=== PATIENT | female | born 1975 | race African-American/Black ===

== ENCOUNTER → 2016-11-04 | Outpatient (CLI) | payer SELFPAY ==
--- NOTE | 2016-11-04 15:42 | RADIOLOGY REPORT (SQ) ---
EXAM DESCRIPTION: U/S EXTREMITY NONVASCULAR LTD COMPLETED DATE/TIME: 11/04/2016 3:08 pm REASON FOR STUDY: ENLARGED LYMPH NODES IN ARMPIT R59.0 LOCALIZED ENLARGED LYMPH NODES COMPARISON: None. TECHNIQUE: Dynamic and static grayscale images acquired of the localized site of clinical concern an d recorded on PACS. Additional selected color Doppler and spectral images recorded. SITE OF CONCERN: Right axilla LIMITATIONS: None. FINDINGS: SKIN AND SUBCUTANEOUS TISSUES: A small lymph node is identified measuring 1.0 x 0.8 x 0.5 cm in diameters. There is an associated asymmetric hypoechoic area measuring 0.6 x 0.5 x 0.4 cm in d iameter which I cannot exclude as an associated mass. DEEP SOFT TISSUES/MUSCLES: No masses. No fluid collections. No edema. VASCULAR: No increased or decreased vascularity. No occlusions. OTHER: No other significant finding. IMPRESSION: Small lymph node with an associated asymmetric hypoechoic area as noted above which I ca nnot exclude as a mass involving the lymph node. No other discrete solid or cystic masses are identi fied. Followup is recommended. This node may be amenable to ultrasound-guided biopsy. TECHNICAL DOCUMENTATION: JOB ID: [id number] [employer]- All Rights Reserved
== END ==
LOC: RAD 13:50
PROVIDERS: ATTEND Internal Medicine Medical Oncology
DX: R59.0 Localized enlarged lymph nodes (principal); Z15.01 Genetic susceptibility to malignant neoplasm of breast; Z15.02 Genetic susceptibility to malignant neoplasm of ovary; Z85.3 Personal history of malignant neoplasm of breast
CPT/HCPCS: 76882

== ENCOUNTER → 2016-12-22 | Day surgery (SDC) | payer SELFPAY ==
--- NOTE | 2016-12-24 17:25 | WOMENS IMAGING REPORT ---
EXAM DESCRIPTION: U/S BREAST BX COMPLETED DATE/TIME: 12/22/2016 2:37 pm REASON FOR STUDY: BREAST CANCER (C50.911) C50.911 MALIGNANT NEOPLASM OF UNSP SITE OF RIGHT FEMALE B ALFA R59.0 LOCALIZED ENLARGED LYMPH NODES Z15.01 GENETIC SUSCEPTIBILITY TO MALIGNANT NEOPLASM OF AFIA COMPARISON: Ultrasound right axilla 11/12/2016 TECHNIQUE: The procedure was discussed with the patient and the patient agreed to proceed. The patient was scanned and the lymph node of concern in the right axilla. This correlates with the area of concern on prior imaging studies. This area was targeted for ultrasound-guided core biopsy. After sterile skin prep and 3.5 mL local lidocaine 1% for skin and deep tissue anesthesia, a 14 gauge coaxial core biopsy needle was used to obtain several cores of tissue from the lesion. Under ultras ound guidance, a ribbon clip was placed in the areas sampled. There were no immediate post-procedure complications. MAMMOGRAM: Not performed Pathology yields a diagnosis of benign lymphoid tissue, no atypia or malignancy identified. Pathology is concordant. LIMITATIONS: None. FINDINGS: Ultrasound guided right axillary lymph node biopsy as described above. POST PROCEDURE MAMMOGRAMS FOR MARKER PLACEMENT: No IMPRESSION: ULTRASOUND-GUIDED CORE BIOPSY OF THE RIGHT AXILLARY LYMPH NODE YIELDS A BENIGN DIAGNOSIS COMMENT: COMMUNICATION: Attempts at calling the patient directly with this information or unsuccessf ul, patient's cell phone was not active Patient medication list reviewed: Yes- Quality ID# [id number]:Eligible professional attests to documenting i n the medical record they obtained, updated, or reviewed the patient's current medications. TECHNICAL DOCUMENTATION: JOB ID: [id number] [employer]- All Rights Reserved
== END ==
LOC: WI 12:26
PROVIDERS: ATTEND Internal Medicine Medical Oncology
PROC: 0HBT3ZX Excision of Right Breast, Percutaneous Approach, Diagnostic (ICD-10-PCS; principal; 2016-12-22)
DX: C50.911 Malignant neoplasm of unspecified site of right female breast (principal); R59.0 Localized enlarged lymph nodes; Z15.01 Genetic susceptibility to malignant neoplasm of breast; Z15.02 Genetic susceptibility to malignant neoplasm of ovary
CPT/HCPCS: 19083; 88305; 88342

== ENCOUNTER 2017-10-18 11:38 | Emergency (ER) | payer SELFPAY ==
[2017-10-18] MEDS ORDERED: ACETAMINOPHEN 325 MG TABLET PO ONE (12:14)
--- NOTE | 2017-10-18 12:47 | RADIOLOGY REPORT (SQ) ---
EXAM DESCRIPTION: SHOULDER RIGHT 2 OR MORE VIEWS COMPLETED DATE/TIME: 10/18/2017 12:33 pm REASON FOR STUDY: pain decreased rom COMPARISON: None. NUMBER OF VIEWS: Three views. TECHNIQUE: Internal rotation, external rotation, and Y view images acquired of the right shoulder. LIMITATIONS: None. FINDINGS: MINERALIZATION: Normal. BONES: No acute fracture or dislocation. No worrisome bone lesions. JOINTS: No glenohumeral joint malalignment. No AC joint widening. VISUALIZED LUNGS AND RIBS: No pneumothorax. No rib fracture. SOFT TISSUES: No radiopaque foreign body. OTHER: No other significant finding. IMPRESSION: No acute findings TECHNICAL DOCUMENTATION: JOB ID: [id number] [employer]- All Rights Reserved Reading location - IP/workstation name: [email or web address]
--- NOTE | 2017-10-18 13:14 | ER Document Report ---
ED Extremity Problem, Upper - General Chief Complaint: Shoulder Pain Stated Complaint: SHOULDER PAIN Time Seen by Provider: 10/18/17 12:05 Mode of Arrival: Ambulatory Information source: Patient Notes: 42-year-old female presented ED for complaint of right shoulder pain with no definite injury. She states that every once in a while when she tries to lift some reduce some she will get swelling to the shoulder. She has full range of motion but some pain to the back of the shoulder and upper shoulder when she is doing the range of motion. Patient is alert and oriented respirations regular and unlabored speaking in full sentences and walks with a even steady gait. TRAVEL OUTSIDE OF THE [place] IN LAST 30 DAYS: No - HPI Patient complains to provider of: Right, Shoulder Onset: Other - About a month ago not getting better Recent injury: No Quality of pain: Achy, Sharp Severity of pain: Moderate Pain Level: 3 Associated symptoms: Numbness - Sometime when the pain is real bad her fingers get numb Exacerbated by: Movement, Exertion Relieved by: Rest, Positioning Similar symptoms previously: Yes Recently seen / treated by doctor: No - Related Data Allergies/Adverse Reactions: No Known Allergies Allergy (Unverified 10/18/17 11:40) Past Medical History - General Information source: Patient - Social History Smoking Status: Current Every Day Smoker Cigarette use (# per day): Yes - 4 cigarettes a day Chew tobacco use (# tins/day): No Smoking Education Provided: Yes - 4 minutes Frequency of alcohol use: Social Drug Abuse: None Occupation: [employer] Lives with: Friend Family History: Reviewed & Not Pertinent Patient has suicidal ideation: No Patient has homicidal ideation: No - Medical History Medical History: Other - Iron deficiency anemia - Past Medical History Cardiac Medical History: Reports: None Pulmonary Medical History: Reports: None EENT Medical History: Reports: None Neurological Medical History: Reports: None Endocrine Medical History: Reports: None Renal/ Medical History: Reports: None Malignancy Medical History: Reports: Hx Breast Cancer - Right GI Medical History: Reports: None Musculoskeltal Medical History: Reports None Skin Medical History: Reports None Psychiatric Medical History: Reports: Hx Anxiety, Hx Depression Traumatic Medical History: Reports: None Infectious Medical History: Reports: None Past Surgical History: Reports: Hx Breast Surgery - bilateral mastectomy, Hx Hysterectomy - Immunizations Immunizations up to date: Yes Review of Systems - Review of Systems Constitutional: No symptoms reported EENT: No symptoms reported Cardiovascular: No symptoms reported Respiratory: No symptoms reported Gastrointestinal: No symptoms reported Genitourinary: No symptoms reported Female Genitourinary: No symptoms reported Musculoskeletal: Joint pain - right shoulder, Muscle pain, Muscle stiffness Skin: No symptoms reported Hematologic/Lymphatic: No symptoms reported Neurological/Psychological: No symptoms reported -: Yes All other systems reviewed and negative Physical Exam - Vital signs Vitals: Temp Pulse Resp BP Pulse Ox 98.2 F 76 16 136/86 H 100 10/18/17 11:53 10/18/17 11:53 10/18/17 11:53 10/18/17 11:53 10/18/17 11:53 - Extremities General upper extremity: Normal inspection, Normal color, Normal temperature General lower extremity: Normal inspection, Nontender, Normal color, Normal ROM , Normal temperature, Normal weight bearing. No: Brennen's sign Shoulder: Tender. No: Limited ROM - Pain with range of motion but has full range of motion Course - Re-evaluation Re-evalutation: 10/18/17 13:21 X-ray discussed with patient and written report of x-ray given to patient for follow-up with orthopedics. There is no acute radiological injuries. Patient was instructed to follow-up with orthopedics to ensure there is no muscle or tendon damage. Patient was given instructions on ice warm packs shoulder exercises and use of ibuprofen and Tylenol for her pain. Patient was able to verbalize understanding of instructions and verbalized agreement with treatment plan. - Vital Signs Vital signs: Temp Pulse Resp BP Pulse Ox 98.2 F 76 16 136/86 H 100 10/18/17 11:53 10/18/17 11:53 10/18/17 11:53 10/18/17 11:53 10/18/17 11:53 - Diagnostic Test Radiology reviewed: Image reviewed, Reports reviewed Discharge - Discharge Clinical Impression: Right shoulder pain Qualifiers: Chronicity: acute Qualified Code(s): M25.511 - Pain in right shoulder HTN (hypertension) Qualifiers: Hypertension type: unspecified Qualified Code(s): I10 - Essential (primary) hypertension Condition: Stable Disposition: HOME, SELF-CARE Additional Instructions: Shoulder Injury You have injured your shoulder. This usually results from stretching or tearing of the tendons during trauma. Time and protection are required in order to heal properly. Many injuries are quite disabling, and should be taken seriously. Initial treatment includes cold packs and a sling to rest the shoulder. The physician has assessed the seriousness of your injury, and has outlined a treatment plan. Understand that this treatment may change, depending on how you progress. If a re-examination was recommended, it is important that you follow up as instructed. Some shoulder injuries (such as partial tear of the rotator cuff) are only suspected after you've failed to improve. Call us if there's severe pain, numbness, or loss of function. Exercise Program for the Shoulder Since the shoulder moves in so many directions, the joint attachment is weak. Muscles provide most of the stability to the shoulder. You must exercise your shoulder to prevent painful instability or stiffening. PASSIVE - These may be begun within a few days of the injury. While standing, lean forward, allowing the arm to hang down towards the floor. Move the arm in small circles while slowly twisting your chest towards and away from the hanging arm. Do this for one minute. ACTIVE - These may be performed when the doctor gives permission. Begin with the arms at the sides. Raise the arms forward (shoulder's width apart) until they reach shoulder level. Then slowly swing both arms back until they are aiming straight out away from each other. Then bring them forward again, and finally, lower them to your sides. Repeat 20 to 30 times. As you improve, put weights in your hands for the exercise. Start with one pound, and work up to 10 pounds. Never use more than is comfortable. Athletes may work up to 30 pounds. Acetaminophen Acetaminophen may be taken for pain relief or fever control. It's much safer than aspirin, offering a wider range of "safe" dosages. It is safe during . Some brand names are Tylenol, Panadol, Datril, Anacin 3, Tempra, and Liquiprin. Acetaminophen can be repeated every four hours. The following are maximum recommended dosages: WEIGHT Dose Drops Elixir Chewable( 80mg) (LBS.) drprs=droppers tsp=teaspoon 6 40 mg .4 ml (1/2) 6-11 80 mg .8 ml (full) 1/2 tsp 1 tab 12-16 120 mg 1 1/2 drprs 3/4 tsp 1 1/2 tabs 17-23 160 mg 2 drprs 1 tsp 2 tabs 24-30 240 mg 3 drprs 1 1/2 tsp 3 tabs 30-35 320 mg 2 tsp 4 tabs 36-41 360 mg 2 1/4 tsp 4 1 /2 tabs 42-47 400 mg 2 1/2 tsp 5 tabs 48-53 480 mg 3 tsp 6 tabs 54-59 520 mg 3 1/4 tsp 6 1 /2 tabs 60-64 560 mg 3 1/2 tsp 7 tabs 65-70 600 mg 3 3/4 tsp 7 1 /2 tabs 71-76 640 mg 4 tsp 8 tabs 77-82 720 mg 4 1/2 tsp 9 tabs 83-88 800 mg 5 tsp 10 tabs >89 pounds or adults 650 mg to 900 mg Acetaminophen can be repeated every four hours. Maximum daily dose not to exceed 4000 mg. These maximum recommended dosages are slightly higher than the dosages written on the product container, but these dosages are very safe and well below the toxic dosage for acetaminophen. USE OF TYLENOL (ACETAMINOPHEN): Acetaminophen may be taken for pain relief or fever control. It's much safer than aspirin, offering a wider range of "safe" dosages. It is safe during . Some brand names are Tylenol, Panadol, Datril, Anacin 3, Tempra, and Liquiprin. Acetaminophen can be repeated every four hours. The following are maximum recommended dosages: WEIGHT Dose Drops Elixir Chewable( 80mg) (LBS.) drprs=droppers tsp=teaspoon 6 40 mg 0.4 ml (1/2) 6-11 80 mg 0.8 ml (full) tsp 1 tab 12-16 120 mg 1 1/2 drprs 3/4 tsp 1 1/2 tabs 17-23 160 mg 2 drprs 1 tsp 2 tabs 24-30 240 mg 3 drprs 1 1/2 tsp 3 tabs 30-35 320 mg 2 tsp 4 tabs 36-41 360 mg 2 1/4 tsp 4 1/2 tabs 42-47 400 mg 2 1/2 tsp 5 tabs 48-53 480 mg 3 tsp 6 tabs 54-59 520 mg 3 1/4 tsp 6 1/2 tabs 60-64 560 mg 3 1/2 tsp 7 tabs 65-70 600 mg 3 3/4 tsp 7 1/2 tabs 71-76 640 mg 4 tsp 8 tabs 77-82 720 mg 4 1/2 tsp 9 tabs 83-88 800 mg 5 tsp 10 tabs >89 pounds or adults 650 mg to 900 mg Acetaminophen can be repeated every four hours. Maximum dose not to exceed 4000 mg a day. These maximum recommended dosages are slightly higher than the dosages written on the product container, but these dosages are very safe and below the toxic dosage for acetaminophen. ICE PACKS: Apply ice packs frequently against the painful area. Many different schedules are recommended, such as "20 minutes on, 20 minutes off" or "one hour ice, two hours rest." If you need to work, you may need to go longer between ice treatments. You should plan to have the area ice packed AT LEAST one fourth of the time. The ice should be applied over the wrap, tape, or splint, or over a layer of cloth -- not directly against the skin. Some ice bags have a built-in cloth and can be put directly on the skin. WARM PACKS: After approximately two days, apply gentle heat (such as a heating pad or hot water bottle) for about 20 to 30 minutes about every two hours -- at least four times daily. Warmth and elevation will help you make a more rapid recovery , and will ease the pain considerably. Do not use HOT heat, and never apply heat for longer than 30 minutes. The continuous heat can invisibly damage skin and muscles -- even when no burn is seen on the surface. Damaged muscles can make you MORE sore. MUSCLE RELAXERS: Muscle relaxing medications are usually prescribed for acute muscle spasm or injury to the neck and back. They are often combined with antiinflammatory pain medication for increased relief. You may stop the muscle relaxer when the pain and stiffness have improved. Start the medication again if spasms recur. Muscle relaxers may cause drowsiness, especially with the first dose. Do not operate machinery or drive while under the effects of the medication. Most muscle relaxers last up to 24 hours. Do not combine the medication with alcohol. FOLLOW-UP CARE: If you have been referred to a physician for follow-up care, call the physician s office for an appointment as you were instructed or within the next two days. If you experience worsening or a significant change in your symptoms, notify the physician immediately or return to the Emergency Department at any time for re-evaluation. Prescriptions: Cyclobenzaprine HCl [Flexeril 5 mg Tablet] 5 mg PO TID #15 tablet Forms: Elevated Blood Pressure, Smoking Cessation Education Referrals: VICKEY ANGEL MD [Primary Care Provider] - Follow up as needed JACKIE BUCIO MD [ACTIVE STAFF] - Follow up as needed
[2017-10-18 13:17] VITALS: BP 101/66
== END 2017-10-18 13:17 | disposition home or self-care (01) ==
LOC: ER 11:38
DX: M25.511 Pain in right shoulder (principal); I10 Essential (primary) hypertension; F17.210 Nicotine dependence, cigarettes, uncomplicated; Z90.13 Acquired absence of bilateral breasts and nipples; Z90.710 Acquired absence of both cervix and uterus
CPT/HCPCS: 99283; 99406

== ENCOUNTER 2018-04-12 10:37 | Emergency (ER) | payer SELFPAY ==
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
[2018-04-12 11:39] LABS: ABSOLUTE BASOPHILS # (AUTO) 0.1 10^3/uL (0.0-0.2); ABSOLUTE LYMPHOCYTES (AUTO) 1.4 10^3/uL (0.5-4.7); ABSOLUTE MONOCYTES (AUTO) 0.8 10^3/uL (0.1-1.4); ABSOLUTE NEUT (AUTO) 7.6 10^3/uL (1.7-8.2); BASOPHILS % (AUTO) 0.7 % (0-2); EOSINOPHILS % (AUTO) 0.4 % (0-6); HEMATOCRIT 40.7 % (36.0-47.0); HEMOGLOBIN 13.9 g/dL (12.0-15.5); LYMPHOCYTES % (AUTO) 13.8 % (13-45); MEAN CORPUSCULAR HEMOGLOBIN 33.9 pg (27.0-33.4); MEAN CORPUSCULAR HGB CONC 34.2 g/dL (32.0-36.0); MEAN CORPUSCULAR VOLUME 99 fl (80-97); MONOCYTES % (AUTO) 8.5 % (3-13); PLATELET COUNT 254 10^3/uL (150-450); RED BLOOD COUNT 4.11 10^6/uL (3.72-5.28); RED CELL DISTRIBUTION WIDTH 13.9 % (11.5-14.0); SEGMENTED NEUTROPHILS % (AUTO) 76.6 % (42-78); TOTAL CELLS COUNTED % (AUTO) 100 %; WHITE BLOOD COUNT 9.9 10^3/uL (4.0-10.5)
[2018-04-12 11:44] LABS: ACETAMINOPHEN < 10 ug/mL (10-30); ALANINE AMINOTRANSFERASE 39 U/L (9-52); ALBUMIN 4.7 g/dL (3.5-5.0); ALCOHOL < 10 mg/dL (NONE DETECTED); ALKALINE PHOSPHATASE 73 U/L (38-126); ANION GAP 10 (5-19); ASPARTATE AMINO TRANSFERASE 40 U/L (14-36); BILIRUBIN,DIRECT 0.3 mg/dL (0.0-0.4); BILIRUBIN,TOTAL 0.5 mg/dL (0.2-1.3); BLOOD UREA NITROGEN 13 mg/dL (7-20); CALCIUM 9.7 mg/dL (8.4-10.2); CARBON DIOXIDE 26 mmol/L (22-30); CHLORIDE 104 mmol/L (98-107); GLUCOSE 121 mg/dL (75-110); POTASSIUM 4.2 mmol/L (3.6-5.0); SALICYLATE < 1.0 mg/dL (2.0-20.0); SODIUM 139.7 mmol/L (137-145)
--- NOTE | 2018-04-12 13:11 | EKG REPORT ---
SEVERITY:- ABNORMAL ECG - SINUS RHYTHM LEFT VENTRICULAR HYPERTROPHY ST ELEV, PROBABLE NORMAL EARLY REPOL PATTERN : Confirmed by: Kishor Steve 12-Apr-2018 13:10:58
[2018-04-12 13:41] LABS: APPEARANCE,URINE SLIGHTLY-CLOUDY; BILIRUBIN,URINE NEGATIVE (NEGATIVE); COLOR,URINE YELLOW; GLUCOSE, URINE NEGATIVE (NEGATIVE); KETONES,URINE NEGATIVE (NEGATIVE); LEUKOCYTE ESTERASE,URINE NEGATIVE (NEGATIVE); NITRITE,URINE NEGATIVE (NEGATIVE); PROTEIN,URINE NEGATIVE (NEGATIVE); URINE SPECIFIC GRAVITY 1.018; UROBILINOGEN,URINE NEGATIVE mg/dL (<2.0)
[2018-04-12 13:57] LABS: URINE AMPHETAMINES SCREEN NEGATIVE; URINE BARBITURATES SCREEN NEGATIVE; URINE BENZODIAZEPINES SCREEN NEGATIVE; URINE COCAINE SCREEN NEGATIVE; URINE MARIJUANA (THC) SCREEN UNCONFIRMED POSITIVE; URINE METHADONE SCREEN NEGATIVE; URINE PHENCYCLIDINE SCREEN NEGATIVE
--- NOTE | 2018-04-12 14:16 | PSYCHOLOGICAL NOTE ---
Psych Note - Psych Note Date seen by psych provider: 04/12/18 Time seen by psych provider: 12:15 Psych Note: Reason for Consult: suicidal ideation 42-year-old female who presents to the emergency department today with complaints of suicidal ideation. Patient disclosed she came to [facility] ED with her mom at her family's request stating that she has been suffering from suicidal ideation a lot and feels that she needs to be back on her medications. Patient reports that she does not want to "be here anymore I pray to God every day to take me naturally so no one will talk about it when I am gone." She continued to report that her plan is to take "the sleeping pills I have at home...Tylenol PM" and admits to trying to stab her arm and attempt to "get that vein that she cannot stop." She confirms she has a history of cutting as a maladaptive coping skill but reports that stabbing her arm was an attempt; this occurred 2 days ago. She reports the only thing that has stopped her is her children however her youngest child is 18 years old now and is good to be graduating from high school. She reports trying to hold on until he graduates; "people say that it is just giving up being selfish but I do not think I really care because once I gone I would not really worry about with a think anyways." Patient reports a long history of suicidal ideation starting at the age of for 89; "I remember back when I was 9 years old wanting to ." Clinician asked what occurred when she was 9 years old at which point the patient curled into a ball and started crying and stated "sometimes I remember things.. Things I do not want to... So I drink to stop thinking about it." Patient currently does not have an outpatient provider and has been off her medications for approximately 2 years. Patient is alert and orientated to person, place, time and circumstance. Mood is dysphoric with flat affect; clinician notes patient did become tearful at one point during evaluation when thinking of her childhood. Patient endorses suicidal ideation with plan of overdosing on Tylenol. Patient attempted to take her maladaptive coping skill of cutting further and stabbed herself 2 days ago and attempt to hit an artery. Patient denies homicidal ideation. Delusions are absent behaviors congruent with an intact reality based presentation i.e. organized and linear thought process. Eye contact is poor. Conversational speech is low but easily understood. Intellectual abilities appear to be within the average range. Attention and concentration is fair. Insight, judgment, impulse control is fair. Medication recommendations per [facility]'s contracted psychiatrist Dr. Ruby PETERSEN are as follows Zyprexa 5 mg twice daily Cogentin 1 mg daily 296.80 (F 31.9) unspecified bipolar and related disorder per history provided by patient 291.9 (F10.99) unspecified alcohol related disorder-maladaptive coping skill V15.59 (Z 91.5) personal history of rnop-tcpm-dokyezfdjji coping skill; cutting R/O 309.81 (F 43.10) post manic stress disorder Impression\\plan: Patient is recommended for IVC. Patient came in voluntarily at the request of family and acknowledges that she needs to get back on medication; however, the severity of patient's depression and suicidal ideation warrants IVC. Patient endorses suicidal ideation with plan of overdosing on Tylonal PM. Patient attempted to harm herself 2 days ago. While patient has a maladaptive coping skill of cutting, patient attempted to stab herself in her arm trying to hit an artery. Medication recommendations have been provided. Patient will be reevaluated. Dr. Cazares was consulted and the care management this patient; attending physicians in agreement with recommendations and disposition.
[2018-04-12] MEDS: BENZTROPINE MESYLATE 1 MG TABLET PO SCH (20:17)
[2018-04-12] MEDS: OLANZAPINE 5 MG TABLET PO SCH (20:17)
[2018-04-13] MEDS: BENZTROPINE MESYLATE 1 MG TABLET PO SCH (09:02)
[2018-04-13] MEDS: OLANZAPINE 5 MG TABLET PO SCH (09:02)
--- NOTE | 2018-04-13 09:28 | ER Document Report ---
Doctor's Note Notes: 04/13/18 09:27 42-year-old female who presents status post self-mutilation with suicidal ideation off her medications for 2 years. They restarted the patient on medications. Labs as recorded. Vital signs are stable. Patient denies any suicidal or homicidal ideations at this time. She denies any auditory visual hallucinations. The psychology/psychiatry team is going to call mom and significant other "Danny" today and discussed the patient possibly going home and being treated as an outpatient. 04/13/18 11:23 Patient is calm and cooperative and denies any suicidal ideations at this time. Labs and vital signs as recorded. Mom and boyfriend are both here in the emergency department and are very comfortable taking the patient home. The psychiatrist/psychology team does not believe the patient feels IVC requirements at this time. We will provide a one-month prescription for the antipsychotic/antidepression meds and have the patient follow-up with integrated family services.
--- NOTE | 2018-04-13 10:29 | PSYCHOLOGICAL NOTE ---
Psych Note - Psych Note Date seen by psych provider: 04/13/18 Time seen by psych provider: 08:10 Psych Note: Reason for Consult: suicidal ideation consent permissions: Carlos, significant other,[phone] and mother, Lissette 42-year-old female who presents to the emergency department today with complaints of suicidal ideation. Clinician conducted check-in with patient Patient reports she is not having any thoughts of wanting to harm herself and feels that she can successfully follow through with outpatient mental health services. She discloses no concerns about returning home and states that she will take her medications and follow through with therapy. Clinician spoke with patient's significant other, Danny, who confirms that he will be part of the patient's plan of care; "I will do whatever it takes." He discloses that he will ensure the patient does not have access to medications and weapons and follows through with mental health recommendations. He reports that they support each other and he has no problems pulling her side if he feels that she has not taken her medications. He discusses with clinician signs and symptoms of what he needs to look out for in the future to ensure the patient receives care when needed. Clinician spoke with patient's mother who confirms she will be part of the patient's and of care. 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 Medication recommendations per [facility]'s contracted psychiatrist Dr. Ruby PETERSEN are as follows Zyprexa 5 mg twice daily Cogentin 1 mg daily 296.80 (F 31.9) unspecified bipolar and related disorder per history provided by patient 291.9 (F10.99) unspecified alcohol related disorder-maladaptive coping skill V15.59 (Z 91.5) personal history of pqcc-hqde-akbyjrcoryx coping skill; cutting R/O 309.81 (F 43.10) post traumatic stress disorder Impression\\plan: Patient is recommended for rescind of IVC and is cleared from acute psychiatric services. Patient came in voluntarily at the request of family and acknowledges that she needs to get back on medication. Patient denies thoughts of wanting to harm herself and identifies a strong support network. Patient's significant other, Carlos, and patient's mother, Lissette, confirms they want to be part of the patient's plan of care. They confirm they will ensure she does not have access to medication or weapons and follows through with outpatient mental health services. Patient has been provided a resource list that includes mobile crisis contact information; patient will be released to her mother. Dr. Cazares was consulted and the care management this patient; attending physicians in agreement with recommendations and disposition.
[2018-04-13 11:39] VITALS: BP 112/73
== END 2018-04-13 11:38 | disposition home or self-care (01) ==
LOC: ER 10:37
DX: S41.112A Laceration without foreign body of left upper arm, initial encounter (principal); F17.210 Nicotine dependence, cigarettes, uncomplicated; X78.9XXA Intentional self-harm by unspecified sharp object, initial encounter
CPT/HCPCS: 36415; 80053; 80307; 81001; 84703; 85025; 93005; 93010; 99285

== ENCOUNTER 2018-05-06 15:58 | Emergency (ER) | payer SELFPAY ==
--- NOTE | 2018-05-06 16:31 | ER Document Report ---
ED Medical Screen (RME) - General Chief Complaint: Suicidal Ideation Stated Complaint: SUICIDAL IDEATION Time Seen by Provider: 05/06/18 16:25 Notes: Patient is here for suicidal thoughts. Brought in by her mother. Patient says she is been feeling suicidal "forever". Today, she cut her left arm, which she has done several times in the past. She does have a 2 cm laceration of the wrist that looks like it probably will need a couple of sutures or nathan. Patient says she was seen here a couple of weeks ago. Was put on medications and she is taking 1 of them but cannot afford the other one. She is very tearful at this time. Patient has a diagnosis of depression and bipolar disorder. Other important history is a patient has had bilateral mastectomies about a year ago with no known residual breast cancer. TRAVEL OUTSIDE OF THE [place] IN LAST 30 DAYS: No - Related Data Allergies/Adverse Reactions: No Known Allergies Allergy (Verified 05/06/18 16:01) Past Medical History - Social History Chew tobacco use (# tins/day): No Frequency of alcohol use: Social Drug Abuse: Marijuana Renal/ Medical History: Denies: Hx Peritoneal Dialysis Malignancy Medical History: Reports: Hx Breast Cancer - Right Psychiatric Medical History: Reports: Hx Anxiety, Hx Bipolar Disorder, Hx Depression Past Surgical History: Reports: Hx Breast Surgery - bilateral mastectomy, Hx Hysterectomy - Immunizations Immunizations up to date: Yes Physical Exam - Vital signs Vitals: Temp Pulse Resp BP Pulse Ox 97.4 F 95 18 123/86 H 100 05/06/18 16:04 05/06/18 16:04 05/06/18 16:04 05/06/18 16:04 05/06/18 16:04 Course - Vital Signs Vital signs: Temp Pulse Resp BP Pulse Ox 97.4 F 95 18 123/86 H 100 05/06/18 16:04 05/06/18 16:04 05/06/18 16:04 05/06/18 16:04 05/06/18 16:04
[2018-05-06] MEDS ORDERED: LIDOCAINE 1%/EPINEPHRINE INJ 20 ML VIAL INJ ONE (16:56)
--- NOTE | 2018-05-06 16:57 | ER Document Report ---
ED Psych Disorder / Suicide - General Chief Complaint: Suicidal Ideation Stated Complaint: SUICIDAL IDEATION Time Seen by Provider: 05/06/18 16:25 Information source: Patient Notes: Patient is a 42-year-old female brought in by her mother with suicidal ideations and cutting her wrist. Patient has been seen here previously with similar suicidal complaints. Patient denies any auditory or visual hallucinations. Patient states that she hears only her own voices that are not telling her any command hallucinations. Patient states that she "normally says stuff when she is here just to get released" but has always wanted to kill herself. Patient states she is only taking 1 of 2 medications prescribed secondary to the cost of the second medication. She is unsure of her tetanus status. TRAVEL OUTSIDE OF THE [place] IN LAST 30 DAYS: No - HPI Patient complains to provider of: Homicidal attempt, Suicidal ideation Onset: Just prior to arrival Onset was: Sudden Quality of pain: Achy Severity: Mild Pain Level: Denies Suicide Risk Factors: Other - See above Suicide Attempt Method: Other - See above Overdose of: Other Injury to: Wrist Associated symptoms: Other - See above Similar symptoms previously: No Recently seen / treated by doctor: No - Related Data Allergies/Adverse Reactions: No Known Allergies Allergy (Verified 05/06/18 16:01) Past Medical History - Social History Smoking Status: Current Every Day Smoker Chew tobacco use (# tins/day): No Frequency of alcohol use: Social Drug Abuse: Marijuana Family History: Reviewed & Not Pertinent Patient has suicidal ideation: Yes Patient has homicidal ideation: No Renal/ Medical History: Denies: Hx Peritoneal Dialysis Malignancy Medical History: Reports: Hx Breast Cancer - Right Psychiatric Medical History: Reports: Hx Anxiety, Hx Bipolar Disorder, Hx D epression Past Surgical History: Reports: Hx Breast Surgery - bilateral mastectomy, Hx Hysterectomy - Immunizations Immunizations up to date: Yes Review of Systems - Review of Systems Constitutional: denies: Fever EENT: denies: Eye discharge, Nose discharge Cardiovascular: denies: Chest pain, Palpitations Respiratory: denies: Short of breath Gastrointestinal: denies: Abdominal pain, Vomiting Genitourinary: denies: Dysuria Musculoskeletal: denies: Leg swelling Neurological/Psychological: Other - no slurred speech -: Yes All other systems reviewed and negative Physical Exam - Vital signs Vitals: Temp Pulse Resp BP Pulse Ox 97.4 F 95 18 123/86 H 100 05/06/18 16:04 05/06/18 16:04 05/06/18 16:04 05/06/18 16:04 05/06/18 16:04 Notes: Reviewed vital signs and nursing note as charted by RN. CONSTITUTIONAL: Alert and oriented and responds appropriately to questions HEAD: Normocephalic; atraumatic EYES: PERRL; no nystagmus, sclerae non-icteric ENT: Normal nose; no rhinorrhea; moist mucous membranes; pharynx without lesions noted NECK: Supple without meningismus; non-tender; no cervical lymphadenopathy, no masses CARD: Regular rate and rhythm; no murmurs; symmetric distal pulses RESP: Normal chest excursion without splinting or tachypnea; breath sounds clear and equal bilaterally ABD/GI: Normal bowel sounds; non-distended; soft, non-tender to deep palpation of all 4 quadrants of the abdomen BACK: The back appears normal and is non-tender to palpation EXT: Normal ROM in all joints; hemostatic laceration to the left medial wrist around 2 cm in diameter SKIN: See above NEURO: CN 2-12 intact; 5/5 bilateral upper and lower extremity strength with sensation intact to light touch PSYCH: Flat affect consistent with presentation history Course - Re-evaluation Re-evalutation: 05/06/18 17:14 Given the above history and physical examination we will provide a tetanus shot, irrigate and suture the wound appropriately, order the psychiatric laboratory profile as requested, obtain an EKG and reassess. EKG shows a heart rate of 95, normal sinus rhythm, normal axis, minimal LVH, no ST elevation or depression. - Vital Signs Vital signs: Temp Pulse Resp BP Pulse Ox 97.4 F 95 18 123/86 H 100 05/06/18 16:04 05/06/18 16:04 05/06/18 16:04 05/06/18 16:04 05/06/18 16:04 - Laboratory Result Diagrams: 05/06/18 16:40 05/06/18 16:40 Laboratory results interpreted by me: 05/06/18 05/06/18 05/06/18 16:40 16:40 16:40 MCV 99 H MCH 33.9 H Sodium 146.0 H Chloride 108 H Urine Protein 100 H Procedures - Laceration/Wound Repair Left Wrist Wound length (cm): 2 Wound's Depth, Shape: Superficial, Linear Laceration pre-procedure: Chloraprep applied Anesthetic type: 1% Lidocaine w/epi Wound explored: Clean Wound Repaired With: Sutures Suture Size/Type: 4:0 Number of Sutures: 3 Post-procedure wound care: Sterile dressing applied Post-procedure NV exam normal: Yes Complications: No Discharge - Discharge Clinical Impression: Suicide ideation, Suicide attempt Laceration of left wrist Qualifiers: Encounter type: initial encounter Qualified Code(s): S61.512A - Laceration without foreign body of left wrist, initial encounter Alcohol intoxication Qualifiers: Complication of substance-induced condition: with unspecified complication Qualified Code(s): F10.929 - Alcohol use, unspecified with intoxication, unspecified Condition: Fair
[2018-05-06 17:03] LABS: ABSOLUTE EOSINOPHILS # (AUTO) 0.1 10^3/uL (0.0-0.6); ABSOLUTE LYMPHOCYTES (AUTO) 2.1 10^3/uL (0.5-4.7); ABSOLUTE MONOCYTES (AUTO) 0.7 10^3/uL (0.1-1.4); ABSOLUTE NEUT (AUTO) 6.4 10^3/uL (1.7-8.2); BASOPHILS % (AUTO) 0.4 % (0-2); EOSINOPHILS % (AUTO) 0.9 % (0-6); HEMATOCRIT 42.3 % (36.0-47.0); HEMOGLOBIN 14.5 g/dL (12.0-15.5); LYMPHOCYTES % (AUTO) 22.3 % (13-45); MEAN CORPUSCULAR HEMOGLOBIN 33.9 pg (27.0-33.4); MEAN CORPUSCULAR HGB CONC 34.2 g/dL (32.0-36.0); MEAN CORPUSCULAR VOLUME 99 fl (80-97); MONOCYTES % (AUTO) 7.7 % (3-13); PLATELET COUNT 296 10^3/uL (150-450); RED BLOOD COUNT 4.27 10^6/uL (3.72-5.28); RED CELL DISTRIBUTION WIDTH 13.3 % (11.5-14.0); SEGMENTED NEUTROPHILS % (AUTO) 68.7 % (42-78); TOTAL CELLS COUNTED % (AUTO) 100 %; WHITE BLOOD COUNT 9.3 10^3/uL (4.0-10.5)
[2018-05-06] MEDS ORDERED: DIPH/PERTUSS(ACELL)/TETANUS VAC/PF 0.5 ML SYR (>=10YO) IM ONE (17:09)
[2018-05-06 17:23] LABS: ALANINE AMINOTRANSFERASE 28 U/L (9-52); ALCOHOL 197 mg/dL (NONE DETECTED); ALKALINE PHOSPHATASE 65 U/L (38-126); ANION GAP 13 (5-19); ASPARTATE AMINO TRANSFERASE 29 U/L (14-36); BILIRUBIN,DIRECT 0.3 mg/dL (0.0-0.4); BILIRUBIN,TOTAL 0.3 mg/dL (0.2-1.3); BLOOD UREA NITROGEN 16 mg/dL (7-20); CALCIUM 9.6 mg/dL (8.4-10.2); CARBON DIOXIDE 25 mmol/L (22-30); CHLORIDE 108 mmol/L (98-107); GLUCOSE 101 mg/dL (75-110); POTASSIUM 4.4 mmol/L (3.6-5.0); TOTAL PROTEIN 7.9 g/dL (6.3-8.2)
[2018-05-06 18:12] LABS: APPEARANCE,URINE SLIGHTLY-CLOUDY; BILIRUBIN,URINE NEGATIVE (NEGATIVE); COLOR,URINE YELLOW; GLUCOSE, URINE NEGATIVE (NEGATIVE); KETONES,URINE NEGATIVE (NEGATIVE); LEUKOCYTE ESTERASE,URINE NEGATIVE (NEGATIVE); NITRITE,URINE NEGATIVE (NEGATIVE); PROTEIN,URINE 100 mg/dL (NEGATIVE); URINE SPECIFIC GRAVITY 1.013; UROBILINOGEN,URINE NEGATIVE mg/dL (<2.0)
[2018-05-06 18:29] LABS: URINE AMPHETAMINES SCREEN NEGATIVE; URINE BARBITURATES SCREEN NEGATIVE; URINE BENZODIAZEPINES SCREEN NEGATIVE; URINE COCAINE SCREEN NEGATIVE; URINE MARIJUANA (THC) SCREEN UNCONFIRMED POSITIVE; URINE METHADONE SCREEN NEGATIVE; URINE PHENCYCLIDINE SCREEN NEGATIVE
--- NOTE | 2018-05-06 18:35 | EKG REPORT ---
SEVERITY:- ABNORMAL ECG - SINUS RHYTHM CONSIDER LEFT VENTRICULAR HYPERTROPHY : Confirmed by: Kishor Steve 06-May-2018 18:34:11
--- NOTE | 2018-05-07 10:11 | PSYCHOLOGICAL NOTE ---
Psych Note - Psych Note Date seen by psych provider: 05/07/18 Time seen by psych provider: 07:05 - Chart review at 0706. Evaluation from [id number] Psych Note: Reason for Consult: SI, SIB cut left wrist with knife required stitches Contact Permissions: Unknown. 04/12/18 visit her Carlos and Mother Lissette were involved Patient is a 42 year old female who presented to the ED last evening via walk in with mother for cutting her left wrist with a knife. He Serum Alcohol Level upon arrival to the ED was 197. UDS was positive for Cannabis. When asked how she was doing she stated "I'm okay." She stated said "i don't know why I am here, I didn't ask for help my mom made me come." She stated she took the medications prescribed from the 04/12/18 ED visit for a couple days then she was told she had to pay $200 and she cannot afford that. She admitted to cutting herself. She showed this clinician her left wrist were there were several stitches. She admitted to previous hospitalizations, the last one being a couple years ago in [place] for similar etiology. Patient was alert and oriented to person, place, time and situation. Mood was depressed with flat affect. She presented aloof. She was somewhat guarded and not forth coming. She denied current SI and did not deny cutting herself. She denied HI. She did not appear to be responding to internal stimuli as evidenced by staying on topic and answering questions when addressed. Thought processes we re linear. Conversational speech was soft and monotone. Intellectual abilities are estimated to be average. Insight, judgment and impulse control were poor as evidenced by depressed mood with flat affect. Chart review revealed patient was seen in the ED by the Behavioral Health team on 04/12/18 due to similar etiology (Depression, SI, SIB and alcohol use as negative coping skills), at that time she said she had thoughts of stabbing her arm (had tried per patient) and overdosing on sleeping medication, during that visit she commented her youngest child is 18 and gradutes soon so she could hold on til then, she was started on medication (Zyprexa 5MG BID, Cogentin 1MG QD), held overnight and a plan of care took place with patient's and mother which included taking safety measures such as patient not having control of medications and administration and locking up immediate sharp objects. Diagnosis: 296.80 (F31.9) Unspecified Bipolar and Related Disorder 303.90 (F10.20) Alcohol Use Disorder, Moderate to Severe (as negative coping skill) 292.9 (F12.99) Unspecified Cannabis Related Disorder V15.59 (Z91.5) Personal History of self harm (as negative coping skill) Medication recommendations made by the psychiatric medical provider, Dr. Ruby MD., includes: Add Zyprexa 5MG PO twice a day for mood stabilization Add Cogentin 1MG PO daily to curb tremor side effects often associated with antipsychotic medications Impression/Plan: Recommendation to IVC patient. She presented to the ED under the influence of alcohol (typically uses as negative coping skill), positive for Cannabis and cut left wrist with a knife which resulted in stitches. She presented depressed with flat affect. She was guarded and not forth coming. She was seen 04/12/18 for similar etiology where she had thoughts of SI (has history of SIB as negative coping skill), mentioned trying to cut her arm or overdosing on sleeping medication at that time and now has taken action. Consulted with Dr. Cazares regarding the management and care of patient. ED Physician in agreement with recommendations.
[2018-05-07] MEDS: BENZTROPINE MESYLATE 1 MG TABLET PO SCH (13:29)
[2018-05-08] MEDS: OLANZAPINE 5 MG TABLET PO SCH ×2 (09:42→09:54)
--- NOTE | 2018-05-08 09:44 | ER Document Report ---
Doctor's Note Notes: 05/08/18 09:42 Rounds: Chart reviewed and patient interviewed. I happened to be on duty in triage 2 nights ago when this patient came in so I am familiar with her background. Patient's expressing suicidal thoughts. Says she has been depressed "forever". She self-inflicted a laceration of her left wrist which was repaired. Patient's underlying mental illnesses bipolar disorder. Also depression. Labs on admission had a blood alcohol of 197 and positive marijuana vital signs are all essentially normal. Patient was started on Zyprexa 5 mg twice a day and Cogentin 1 mg daily. Latest information is the patient is going to be transferred to [facility] psychiatric facility sometime today. Patient appears to be medically stable for transfer or discharge. Homa Elliott MD
[2018-05-08] MEDS: BENZTROPINE MESYLATE 1 MG TABLET PO SCH (09:54)
[2018-05-08 11:01] VITALS: BP 120/70
== END 2018-05-08 10:58 ==
LOC: ER 15:58
DX: S61.512A Laceration without foreign body of left wrist, initial encounter (principal); X78.1XXA Intentional self-harm by knife, initial encounter; F31.9 Bipolar disorder, unspecified; Z79.899 Other long term (current) drug therapy; Z91.14 Patient's other noncompliance with medication regimen; F17.200 Nicotine dependence, unspecified, uncomplicated; Z23 Encounter for immunization; F12.10 Cannabis abuse, uncomplicated; Z85.3 Personal history of malignant neoplasm of breast
CPT/HCPCS: 93005; 99285; 90471; 36415; 80307 ×2; 85025; 80053; 81001; 90715; 93010; 12001; J3490

== ENCOUNTER 2018-06-05 10:46 | Emergency (ER) | payer SELFPAY ==
[2018-06-05] MEDS ORDERED: ETOMIDATE INJ/PF 20 MG/10 ML SDV IV ONE (10:53)
[2018-06-05] MEDS ORDERED: LORAZEPAM INJ 2 MG/1 ML VIAL ONE (10:55)
[2018-06-05] MEDS ORDERED: PHENYTOIN SODIUM INJ/PF 100 MG/2 ML SDV ONE (11:00)
--- NOTE | 2018-06-05 11:06 | RADIOLOGY REPORT (SQ) ---
EXAM DESCRIPTION: CT HEAD WITHOUT COMPLETED DATE/TIME: 06/05/2018 10:55 am REASON FOR STUDY: bed t1 stroke alert COMPARISON: None. TECHNIQUE: Axial images acquired through the brain without intravenous contrast. Images reviewed wi th bone, brain and subdural windows. Additional sagittal and coronal reconstructions were generated. Images stored on PACS. All CT scanners at this facility use dose modulation, iterative reconstruction, and/or weight based d osing when appropriate to reduce radiation dose to as low as reasonably achievable (ALARA). [facility]: Dose Right [facility]: CareDose [facility]: Dose Right [facility]: Teradose 4D [facility]: [employer] RADIATION DOSE: CT Rad equipment meets quality standard of care and radiation dose reduction techniq ues were employed. CTDIvol: 53.2 mGy. DLP: 991 mGy-cm. mGy. LIMITATIONS: None. FINDINGS: Of large geographic area of high attenuation in the right frontal lobe. There is blood in the ventricles. 7 mm right to left midline shift. No extra-axial fluid collection. IMPRESSION: Hemorrhagic stroke right MCA territory. 7 mm right to left midline shift. EVIDENCE OF ACUTE STROKE: YES. RIGHT MCA. COMMENT: Pertinent positive or negative findings of the imaging study reported as a CRITICAL EXAM t o ER PROVIDER at11:00 on 06/05/2018. Category of Critical Exam: Pertinent findings on the imaging study reported as a CRITICAL RESULT to Dr Najera at11:00 on 06/05/19 19. Category of Critical Result: Stroke alert. Intracranial hemorrhage. Quality ID # [id number]: Final reports with documentation of one or more dose reduction techniques (e.g., Au tomated exposure control, adjustment of the mA and/or kV according to patient size, use of iterative reconstruction technique) TECHNICAL DOCUMENTATION: JOB ID: [id number] [employer]- All Rights Reserved Reading location - IP/workstation name: [facility]-RSLOAN
[2018-06-05] MEDS ORDERED: PROPOFOL 1,000 MG/100 ML INFUS..BTL IV ONE (11:12)
[2018-06-05 11:15] LABS: ABSOLUTE EOSINOPHILS # (AUTO) 0.2 10^3/uL (0.0-0.6); ABSOLUTE LYMPHOCYTES (AUTO) 3.8 10^3/uL (0.5-4.7); ABSOLUTE MONOCYTES (AUTO) 0.9 10^3/uL (0.1-1.4); ABSOLUTE NEUT (AUTO) 3.8 10^3/uL (1.7-8.2); BASOPHILS % (AUTO) 0.5 % (0-2); EOSINOPHILS % (AUTO) 1.8 % (0-6); HEMATOCRIT 36.6 % (36.0-47.0); HEMOGLOBIN 12.6 g/dL (12.0-15.5); LYMPHOCYTES % (AUTO) 43.9 % (13-45); MEAN CORPUSCULAR HEMOGLOBIN 33.7 pg (27.0-33.4); MEAN CORPUSCULAR HGB CONC 34.5 g/dL (32.0-36.0); MEAN CORPUSCULAR VOLUME 98 fl (80-97); MONOCYTES % (AUTO) 10.1 % (3-13); PLATELET COUNT 326 10^3/uL (150-450); RED BLOOD COUNT 3.75 10^6/uL (3.72-5.28); RED CELL DISTRIBUTION WIDTH 13.6 % (11.5-14.0); SEGMENTED NEUTROPHILS % (AUTO) 43.7 % (42-78); TOTAL CELLS COUNTED % (AUTO) 100 %; WHITE BLOOD COUNT 8.8 10^3/uL (4.0-10.5)
[2018-06-05 11:19] LABS: INTERNATIONAL RATION (INR) 0.86
[2018-06-05 11:20] LABS: PARTIAL THROMBOPLASTIN TIME 24.6 SEC (23.5-35.8)
[2018-06-05 11:25] LABS: PROTHROMBIN TIME 12.2 SEC (11.4-15.4)
[2018-06-05 11:31] LABS: ALANINE AMINOTRANSFERASE 19 U/L (9-52); ALBUMIN 4.4 g/dL (3.5-5.0); ALKALINE PHOSPHATASE 66 U/L (38-126); ANION GAP 12 (5-19); ASPARTATE AMINO TRANSFERASE 25 U/L (14-36); BILIRUBIN,DIRECT 0.2 mg/dL (0.0-0.4); BILIRUBIN,TOTAL 0.3 mg/dL (0.2-1.3); BLOOD UREA NITROGEN 17 mg/dL (7-20); CALCIUM 9.2 mg/dL (8.4-10.2); CARBON DIOXIDE 25 mmol/L (22-30); CHLORIDE 105 mmol/L (98-107); CREATINE KINASE 156 U/L (30-135); GLUCOSE 185 mg/dL (75-110); POTASSIUM 3.3 mmol/L (3.6-5.0); SODIUM 141.5 mmol/L (137-145); TOTAL PROTEIN 6.8 g/dL (6.3-8.2)
[2018-06-05] MEDS ORDERED: MANNITOL 25% INJ 12.5 GM/50 ML VIAL IV ONE (11:40)
[2018-06-05] MEDS ORDERED: TRANEXAMIC ACID INJ/PF 1,000 MG/10 ML SDV IV ONE (11:40)
[2018-06-05] MEDS ORDERED: NORMAL SALINE 1000 ML 1,000 ML IV ONE (11:41)
--- NOTE | 2018-06-05 11:50 | RADIOLOGY REPORT (SQ) ---
EXAM DESCRIPTION: CHEST SINGLE VIEW COMPLETED DATE/TIME: 06/05/2018 11:26 am REASON FOR STUDY: bed t1 stroke alert COMPARISON: 11/04/2014 EXAM PARAMETERS: NUMBER OF VIEWS: One view TECHNIQUE: Single frontal radiograph of the chest. RADIATION DOSE: N/A LIMITATIONS: None. FINDINGS: TEMPORARY SUPPORT DEVICES:ETT in expected location. NG tube courses below the chente-diaphr agm in to the stomach. LUNGS AND PLEURA: No opacities. No masses. No effusions. No pneumothorax. MEDIASTINUM AND HILAR STRUCTURES: No masses. Contour normal. HEART AND VASCULAR STRUCTURES: Heart size normal. Normal vascularity. Aorta normal for age BONES: No acute findings. OTHER: No other significant finding. IMPRESSION: NO ACUTE RADIOGRAPHIC FINDING IN THE CHEST. SUPPORT DEVICE(S) IN EXPECTED LOCATIONS. TECHNICAL DOCUMENTATION: JOB ID: [id number] [employer]- All Rights Reserved Reading location - IP/workstation name: [email or web address]
[2018-06-05 11:51] LABS: CREATINE KINASE MB 0.76 ng/mL (<4.55)
[2018-06-05] MEDS ORDERED: LEVETIRACETAM 1000 MG/NACL-ISO 1,000 MG/100 ML RTUPB IV ONE (11:51)
--- NOTE | 2018-06-05 11:51 | ER Document Report ---
ED General - General Chief Complaint: Chest Pain Stated Complaint: POSSIBLE STROKE Time Seen by Provider: 06/05/18 11:30 Mode of Arrival: Ambulatory Information source: Relative, Emergency Med Personnel Cannot obtain history due to: Altered mental status Notes: This is a 42-year-old female with a history of breast cancer (status post mastectomy 2 years ago, status post chemotherapy at that time, has been cancer free as per mother for the past 2 years) and depression. Patient's boyfriend states that the patient awoke with a mild headache which gradually worsened. Patient went out to get some aspirin and was coming home to cook. The boyfriend states that the patient started having more severe headache, then started developing right-sided weakness, then stopped talking. EMS was called to the house and the patient was brought in on stroke alert. Patient was brought right to the CAT scan. I saw the patient in CAT scan and at the conclusion of the CT scan, the patient started to have generalized tonic-clonic activity, then noted to have decerebrate rigidity. Patient was intubated emergently at that time. Note: Family does state that the patient's blood pressure has been elevated in the past but she is not been on any medicines. TRAVEL OUTSIDE OF THE [place] IN LAST 30 DAYS: No - HPI Onset: This morning Onset/Duration: Gradual - Related Data Allergies/Adverse Reactions: No Known Allergies Allergy (Verified 06/05/18 10:48) Past Medical History - General Information source: Emergency Med Personnel Cannot obtain history due to: Altered mental status - Social History Smoking Status: Unknown if Ever Smoked Lives with: Spouse/Significant other Family History: Reviewed & Not Pertinent Patient has suicidal ideation: No Patient has homicidal ideation: No Renal/ Medical History: Denies: Hx Peritoneal Dialysis Malignancy Medical History: Reports: Hx Breast Cancer - Right Psychiatric Medical History: Reports: Hx Anxiety, Hx Bipolar Disorder, Hx Depression Past Surgical History: Reports: Hx Breast Surgery - bilateral mastectomy, Hx Hysterectomy - Immunizations Immunizations up to date: Yes Review of Systems - Review of Systems -: Yes ROS unobtainable due to patient's medical condition Physical Exam - Vital signs Vitals: Pulse Ox 98 06/05/18 10:54 Notes: Physical exam: GENERAL: 42-year-old female, unresponsive and seizing. Physical exam is limited at this time due to unresponsiveness. HEAD: Atraumatic, normocephalic. EYES: conjunctiva are normal. ENT: Moist mucous membranes. NECK: Obvious masses, active seizing. LUNGS: No obvious wheezing or crackles. No wheezes rales or rhonchi. Breasts: Bilateral mastectomies HEART: Regular rate and rhythm without murmurs, rubs or gallops. ABDOMEN: Soft, normoactive bowel sounds. No tenderness to palpation. No guarding, no rebound. No masses appreciated. EXTREMITIES: Normal range of motion, no pitting or edema. No clubbing or cyanosis. NEUROLOGICAL: Unresponsive, active seizing, decerebrate rigidity SKIN: Warm, Dry, normal turgor, no rashes or lesions noted. Course - Re-evaluation Re-evalutation: 06/05/18 11:47 CT scan shows large bleed on the right (MCA distribution) with 7 mm shift from right to left. Patient intubated with etomidate and succinyl choline Bilateral breath sounds appreciated. I counseled patient's mother and boyfriend in the family room. They are aware of the situation. I discussed case with Dr. Stratton who is recommended TXA, mannitol (1 g/kg), 1 L NS saline after that. Patient's vent settings: Tidal volume 400 PEEP of 5 FiO2 40% Respiratory 12 Sedation: Propofol Antiepileptic: Patient was given IV Ativan at the time of the seizure. Patient will be loaded with Keppra (Patient did not get IV Dilantin). 06/05/18 12:01 - Vital Signs Vital signs: Temp Pulse Resp BP Pulse Ox 95.8 F L 71 14 104/74 100 06/05/18 12:31 06/05/18 12:20 06/05/18 12:31 06/05/18 12:31 06/05/18 12:31 - Laboratory Result Diagrams: 06/05/18 10:27 06/05/18 10:27 Laboratory results interpreted by me: 06/05/18 06/05/18 10:27 10:27 MCV 98 H MCH 33.7 H Potassium 3.3 L Glucose 185 H Creatine Kinase 156 H - Diagnostic Test Radiology reviewed: Image reviewed, Reports reviewed - Chest x-ray repeat shows tube just below the inferior portion of the clavicle. No infiltrates. - EKG Interpretation by Me Rate: Normal Rhythm: NSR - KG shows normal sinus rhythm with a ventricular rate of 84, no acute ST-T wave changes Procedures - Intubation Orotracheal Time of Intubation: 11:00 Airway evaluation: Other - Actively seizing Mallampati Classification: Class 3 Medications: Etomidate, Succinylcholine Intubation method: Orotracheal Equipment used: Glidescope ETT size: 7.5 ETT secured at: Teeth ETT secured at (cm): 20 Breath Sounds after Intubation: Equal End tidal CO2 confirmed: Yes Ventilator settings: SIMV Critical Care Note - Critical Care Note Total time excluding time spent on procedures (mins): 60 Discharge - Discharge Clinical Impression: Hemorrhagic CVA, Seizure Condition: Critical Disposition: [facility]
[2018-06-05 11:52] LABS: TROPONIN I < 0.012 ng/mL
[2018-06-05] MEDS ORDERED: MANNITOL IV ONE (12:45)
[2018-06-05 13:52] VITALS: BP 104/74
[2018-06-05] MEDS ORDERED: SUCCINYLCHOLINE CHLORIDE INJ 200 MG/10 ML VIAL ONE (14:40)
--- NOTE | 2018-06-05 17:04 | EKG REPORT ---
SEVERITY:- ABNORMAL ECG - SINUS RHYTHM LEFT VENTRICULAR HYPERTROPHY : Confirmed by: Ja Coello MD 05-Jun-2018 17:03:46
== END 2018-06-05 12:58 | disposition short-term general hospital (02) ==
LOC: ER 10:46
DX: I61.8 Other nontraumatic intracerebral hemorrhage (principal); R56.9 Unspecified convulsions; R41.82 Altered mental status, unspecified; R22.1 Localized swelling, mass and lump, neck; Z85.3 Personal history of malignant neoplasm of breast; Z92.21 Personal history of antineoplastic chemotherapy
CPT/HCPCS: 93005; 99291; 51702; 96375; 96365; 36415; 82553; 82550; 85025; 85610; 85730; 80053; 84484; 71045; 70450; 94660; 93010; 31500; J2704; J2060; J0330; J1953; J3490